=== PATIENT | male | born 1960 | race Caucasian/White ===

== ENCOUNTER 2018-12-08 02:50 | Observation (INO) | payer OTHER ==
[~2018-12-08] VITALS: Ht 182.9 cm; Wt 97.3 kg
[2018-12-08] MEDS ORDERED: PLAVIX75 MG PO (02:56)
[2018-12-08] MEDS ORDERED: LIPITOR20 MG PO (02:57)
[2018-12-08] MEDS ORDERED: BRETHINE2.5 MG PO (02:57)
[2018-12-08] MEDS ORDERED: BAYER CHEWABLE81 MG PO (02:57)
[2018-12-08] MEDS ORDERED: METOPROLOL TART25 MG PO (02:57)
[2018-12-08 03:15] LABS: BASOPHILS 0.2 % (0-2); EOSINOPHILS 2.3 % (0-7); HEMATOCRIT 45.1 % (42.0-54.0); HEMOGLOBIN 15.9 g/dL (13.5-17.5); IMMATURE GRANULOCYTES 0.4 % (0-5); MCH 30.3 pg (26.0-34.0); MCHC 35.3 g/dL (31.0-37.0); MCV 86.1 fL (80.0-100.0); MEAN PLATELET VOLUME 9.8 fL (7.4-10.4); MONOCYTES 8.2 % (2-11); NEUTROPHILS 49.9 % (40-80); PLATELET COUNT 253 10x3/uL (130-400); RBC 5.24 10x6/uL (4.20-6.10); RDW 13.2 % (11.5-14.5); WBC 11.8 10x3/uL (4.8-10.8)
[2018-12-08 03:31] LABS: ALBUMIN 3.8 g/dL (3.4-5.0); ALKALINE PHOSPHATASE 100 U/L (46-116); ALT (SGPT) 27 U/L (10-68); BILIRUBIN - TOTAL 0.37 mg/dL (0.2-1.3); CALC OSMOLALITY 287 mosm/kg (275-300); CALCIUM 8.4 mg/dL (8.5-10.1); CHLORIDE - SERUM 105 mmol/L (98-107); GLUCOSE 115 mg/dL (74-106); SODIUM 143 mmol/L (136-145); UREA NITROGEN 17 mg/dL (7-18); eGFR NON AFRICAN AMERICAN 81 mL/min (90-120)
[2018-12-08 03:35] LABS: POTASSIUM - SERUM 2.5 mmol/L (3.5-5.1)
--- NOTE | 2018-12-08 03:36 | NUR ---
CRITICAL LAB POTASSIUM 2.5 EDP INFORMED.
[2018-12-08 04:40] VITALS: BP 109/71; Ht 182.9 cm; Wt 97.3 kg
--- NOTE | 2018-12-08 07:32 | NUR ---
PT AWAKE AND ORIENTED, STATES HE HAS A WEADING TODAY HE HAS TO GO TOO. SHOWING NO FURTHER ADVERSE EFFECTS FROM HIS ALLERGIC REACTION HE HAD THE PREVIOUS. WILL SPEAK TO THE DR. NO COMLAINTS/CONCERNS/QUESTIONS. CL IN REACH, SRX2.
[2018-12-08 08:10] VITALS: BP 102/64
[2018-12-08 08:26] LABS: BASOPHILS 0.1 % (0-2); EOSINOPHILS 0 % (0-7); HEMATOCRIT 42.4 % (42.0-54.0); HEMOGLOBIN 14.8 g/dL (13.5-17.5); IMMATURE GRANULOCYTES 0.2 % (0-5); LYMPHOCYTES 3.4 % (15-50); MCH 29.8 pg (26.0-34.0); MCHC 34.9 g/dL (31.0-37.0); MCV 85.3 fL (80.0-100.0); MONOCYTES 0.7 % (2-11); NEUTROPHILS 95.6 % (40-80); PLATELET COUNT 215 10x3/uL (130-400); RBC 4.97 10x6/uL (4.20-6.10); RDW 13.1 % (11.5-14.5)
[2018-12-08 08:32] LABS: WBC 14.8 10x3/uL (4.8-10.8)
[2018-12-08 08:39] LABS: CALCIUM 8.3 mg/dL (8.5-10.1); CARBON DIOXIDE 22.4 mmol/L (21.0-32.0); CHLORIDE - SERUM 106 mmol/L (98-107); SODIUM 140 mmol/L (136-145); UREA NITROGEN 17 mg/dL (7-18); eGFR NON AFRICAN AMERICAN 81 mL/min (90-120)
[2018-12-08 08:45] LABS: CALC OSMOLALITY 284 mosm/kg (275-300); GLUCOSE 177 mg/dL (74-106); POTASSIUM - SERUM 4.1 mmol/L (3.5-5.1)
[2018-12-08 10:59] LABS: ANION GAP 17.1 mmol/L (8-16); CARBON DIOXIDE 23.2 mmol/L (21.0-32.0); POTASSIUM - SERUM 4.3 mmol/L (3.5-5.1)
--- NOTE | 2018-12-08 11:47 | NUR ---
PT LYING IN BED, STILL SLIGHTLY SWOLLEN. UNDERSTANDS THE DR WANTS TO WAIT UNTIL 1500 BEFORE REASSESSING IF HE CAN GO HOME. ONCE BENADYRL/ZUC-C-UUEADW IS OUT OF HIS SYSTEM TO SEE IF SWEELING CHANGES. AT BEDSIDE, NO COMPLAINTS QUESTIONS OR CONCERNS AT THIS TIME. CL IN REACH, SRX2.
[2018-12-08 12:15] VITALS: BP 108/69
[2018-12-08] MEDS ORDERED: FEXOFENADINE HC60 MG PO (12:41)
[2018-12-08] MEDS ORDERED: PEPCID PO (12:42)
[2018-12-08] MEDS ORDERED: STERAPRED DS 1210 MG PO (12:44)
--- NOTE | 2018-12-08 13:15 | NUR ---
RX FOR PEPCID 40 MG #30 ISSUED TO [facility], SPOKE TO CORAL, PHARMACIST.
--- NOTE | 2018-12-08 13:48 | NUR ---
PT AMBULATED OUT, REFUSED WHEELCHAIR. IV REMOVED TIP INTACT. DRIVING POV.
--- NOTE | 2018-12-10 09:39 | MORECARE ---
CASE MANAGEMENT DISCHARGE SUMMARY PATIENT: ROBE KIRAN UNIT: [id number] ADM DATE: 12/08/18 AGE: 58 : 56 SEX: M ROOM/BED: D.2113 AUTHOR: FARZANA CRAIG PHYSICIAN: REFERRING PHYSICIAN: FELTON RODAS MD DATE OF SERVICE: 12/10/18 Discharge Plan Patient Name: ROBE KIRAN Facility: [facility]:[place] : 1960 Planned Disposition: Home Anticipated Discharge Date: 12/08/18 Discharge Date: 12/08/2018 Expected LOS: 1 Initial Reviewer: [email or web address] Initial Review Date: 12/10/2018 Generated: 12/10/18 10:38 am Patient Name: ROBE KIRAN Page [id number] at 0939 All edits/amendments must be made on the electronic document DICTATION DATE: 12/10/18937 ASSISTANT GENERAL MANAGER: LANDON 12/10/18937 RPT#: [id number] DC DATE:12/08/18 STATUS: DIS IN [facility] [address] [place] [address] END OF REPORT
== END 2018-12-08 13:49 | disposition home or self-care (01) ==
LOC: D.ER 02:50 → OBSVTIME 03:29 → D.M2 03:29
PROVIDERS: Family Medicine; ADMIT Family Medicine; ATTEND Family Medicine
DX: T78.2XXA Anaphylactic shock, unspecified, initial encounter (principal); E87.6 Hypokalemia; I25.10 Atherosclerotic heart disease of native coronary artery without angina pectoris; I10 Essential (primary) hypertension